=== PATIENT | female | born 2000 | race African-American/Black ===

== ENCOUNTER 2023-01-14 07:49 | Inpatient (IN) | payer OTHER ==
[~2023-01-14] VITALS: Ht 162.6 cm; Wt 103.4 kg
[~2023-01-14 07:49] MED LIST: LIDOCAINE 2%/EPINEPHRINE 1:200,000 20 ML VIAL INJ ONE
[2023-01-14] MEDS ORDERED: OXYTOCIN 30 UNITS/500ML NS PMX 500 ML IV SCH (12:30)
[2023-01-14] MEDS ORDERED: NALOXONE HCL 0.4 MG/ML 1ML VIAL IM PRN (12:30)
[2023-01-14] MEDS ORDERED: LIDOCAINE HCL 1% 20ML VIAL (Pyxis) INJ INFIL SCH (12:30)
[2023-01-14] MEDS ORDERED: MISOPROSTOL 100MCG TABLET VG SCH (12:30)
[2023-01-14] MEDS ORDERED: METHYLERGONOVINE MALEATE 0.2 MG/ML IM PRN (12:30)
[2023-01-14] MEDS ORDERED: CARBOPROST TROMETHAMINE 250 MCG/ML AMPUL IM PRN (12:30)
[2023-01-14] MEDS ORDERED: FENTANYL CITRATE/PF 50MCG/ML 2ML VIAL IV NR (12:40)
[2023-01-14] MEDS: LACTATED RINGERS 1,000 ML IV SCH ×2 (12:53→20:14)
[2023-01-14 13:09] LABS: CLARITY URINE CLOUDY (CLEAR); COLOR URINE YELLOW (YELLOW); KETONES URINE NEGATIVE (NEGATIVE); LEUKOCYTE ESTERASE URINE 1+ (NEGATIVE); NITRITE URINE NEGATIVE (NEGATIVE); OCCULT BLOOD URINE NEGATIVE (NEGATIVE); PH URINE 6.5 (4.5-8.0); PROTEIN URINE NEGATIVE (NEGATIVE); SPECIFIC GRAVITY URINE 1.019 (1.005-1.030)
[2023-01-14 13:27] LABS: BASOPHILS % 0.2 % (0.0-2.0); EOSINOPHILS % 0.4 % (0.0-5.0); HEMATOCRIT. 34.8 % (36.0-48.0); HEMOGLOBIN. 11.8 g/dL (12.0-16.0); LYMPHOCYTES % 16.7 % (20.0-50.0); MEAN CORPUSCULAR HEMOGLOBIN 31.4 pg (28.0-32.0); MEAN PLATELET VOLUME 10.4 fl (7.4-10.4); MONOCYTES % 8.2 % (2.0-8.0); NEUTROPHILS % 74.5 % (40.0-76.0); PLATELET 181 x1000/uL (130-400); RED BLOOD CELL COUNT 3.75 mill/uL (4.2-5.4); RED CELL DISTRIBUTION WIDTH 13.3 % (11.6-14.6)
[2023-01-14 13:44] LABS: *AMPHETAMINES SCREEN URINE NEGATIVE (NEGATIVE); *BARBITURATES SCREEN URINE NEGATIVE (NEGATIVE); *BENZODIAZEPINES SCREEN URINE NEGATIVE (NEGATIVE); *COCAINE SCREEN URINE NEGATIVE (NEGATIVE); CANNABINOID URINE SCREEN NEGATIVE (NEGATIVE); METHADONE URINE SCREEN NEGATIVE (NEGATIVE); OPIATES URINE SCREEN NEGATIVE (NEGATIVE); PHENCYCLIDINE URINE SCREEN NEGATIVE (NEGATIVE)
[2023-01-14 14:15] LABS: HEPATITIS B SURFACE ANTIGEN NEGATIVE
[2023-01-14 16:02] LABS: INR 0.9; PROTHROMBIN TIME 9.9 sec (9.6-11.0)
[2023-01-14] MEDS ORDERED: MEPERIDINE HCL/PF 50MG/ML CPJ IM PRN (20:30)
[2023-01-14] MEDS ORDERED: NALOXONE HCL 0.4MG/ML VIAL IV PRN (20:30)
[2023-01-14] MEDS ORDERED: MEPERIDINE HCL/PF 50MG/ML CPJ IV NR (20:53)
[2023-01-15] MEDS: LACTATED RINGERS 1,000 ML IV SCH ×2 (02:23→03:48)
[2023-01-15] MEDS ORDERED: ROPIVACAINE HCL/PF EPIDURAL 200 ML EPI ONE (02:56)
[2023-01-15] MEDS ORDERED: ROPIVACAINE HCL/PF EPIDURAL 200 ML EPI SCH (03:00)
[2023-01-15] MEDS ORDERED: DEXAMETHASONE 4MG/ML 1ML VIAL ONE (10:16)
[2023-01-15] MEDS ORDERED: METOCLOPRAMIDE HCL 10MG/2ML VIAL ONE (10:16)
[2023-01-15] MEDS ORDERED: ONDANSETRON HCL 4MG/2ML INJ ONE (10:16)
[2023-01-15] MEDS ORDERED: OXYTOCIN 10 UNITS/ML 1ML ONE ×2 (10:16→11:06)
[2023-01-15] MEDS ORDERED: CEFAZOLIN SODIUM 1000MG/VIAL ONE (10:17)
[2023-01-15] MEDS ORDERED: SODIUM BICARBONATE 4% (2.4MEQ) 5ML VIAL IV ONE (10:17)
[2023-01-15] MEDS ORDERED: PROPOFOL 200MG/20ML VIAL IV ONE (10:44)
[2023-01-15] MEDS ORDERED: KETOROLAC 60MG/2ML VIAL IM ONE (10:59)
[2023-01-15] MEDS ORDERED: MORPHINE SULFATE/PF 1MG/ML 10ML AMP ONE (11:04)
[2023-01-15] MEDS ORDERED: BISACODYL 10MG SUPP PR PRN (11:30)
[2023-01-15] MEDS ORDERED: ONDANSETRON HCL 4MG/2ML INJ IV PRN (11:30)
[2023-01-15] MEDS ORDERED: LANOLIN OINT 7GM TUBE TOP PRN (11:30)
[2023-01-15] MEDS ORDERED: IBUPROFEN 400MG TABLET PO PRN (11:30)
[2023-01-15] MEDS ORDERED: OXYTOCIN 30 UNITS/500ML NS PMX 500 ML IV SCH (11:30)
[2023-01-15] MEDS ORDERED: RHO(D) IMMUNE GLOBULIN 300 MCG/SYR IM PRN (11:30)
[2023-01-15] MEDS ORDERED: HEMORRHOIDAL SUPP PR PRN (11:30)
[2023-01-15] MEDS ORDERED: ACETAMINOPHEN WITH CODEINE 300/30MG TABLET PO PRN (11:30)
[2023-01-15 13:00] VITALS: BP 131/70
[2023-01-15 13:15] VITALS: BP 126/71
[2023-01-15 13:30] VITALS: BP 121/74
[2023-01-15] MEDS ORDERED: FENTANYL CITRATE/PF 50MCG/ML 2ML VIAL IV PRN (13:30)
[2023-01-15] MEDS ORDERED: NALOXONE HCL 0.4 MG/ML 1ML VIAL IV PRN (13:30)
[2023-01-15] MEDS: KETOROLAC 30MG/ML VIAL IV SCH ×2 (13:51→19:47)
[2023-01-15] MEDS ORDERED: LACTATED RINGERS 1,000 ML IV SCH (17:00)
[2023-01-15] MEDS ORDERED: DIPHENHYDRAMINE 50MG/ML VIAL IV PRN (18:15)
[2023-01-15 20:00] VITALS: BP 123/64
[2023-01-15] MEDS ORDERED: DOCUSATE SODIUM 100MG CAPSULE PO SCH (21:00)
[2023-01-15] MEDS ORDERED: DIPHENHYDRAMINE 25MG CAPSULE PO PRN (21:00)
[2023-01-16 00:15] VITALS: BP 126/72
[2023-01-16] MEDS: KETOROLAC 30MG/ML VIAL IV SCH (02:23)
[2023-01-16 03:30] VITALS: BP 113/63
[2023-01-16 06:18] LABS: BASOPHILS % 0.1 % (0.0-2.0); EOSINOPHILS % 0.1 % (0.0-5.0); HEMATOCRIT. 28.4 % (36.0-48.0); HEMOGLOBIN. 9.6 g/dL (12.0-16.0); LYMPHOCYTES % 12.6 % (20.0-50.0); MEAN CORPUSCULAR HEMOGLOBIN 31.1 pg (28.0-32.0); MEAN CORPUSCULAR VOLUME 91.7 fL (81.0-99.0); MEAN PLATELET VOLUME 10.1 fl (7.4-10.4); NEUTROPHILS % 78.2 % (40.0-76.0); PLATELET 176 x1000/uL (130-400); RED CELL DISTRIBUTION WIDTH 13.2 % (11.6-14.6)
[2023-01-16 08:00] VITALS: BP 90/45
[2023-01-16] MEDS: SIMETHICONE 80MG TABLET CHEW PO SCH ×3 (08:02→17:43)
[2023-01-16] MEDS: MAGNESIUM/ALUMINUM HYDROXIDE/SIMETHICONE 30ML UDC PO SCH ×3 (08:02→17:43)
[2023-01-16] MEDS: FERROUS SULFATE 325MG TABLET PO SCH ×3 (08:03→17:44)
[2023-01-16] MEDS: PRENATAL VIT/FE FUMARATE/FA TABLET PO SCH (08:17)
[2023-01-16 15:27] VITALS: BP 124/71
[2023-01-16] MEDS: IBUPROFEN 800MG TABLET PO PRN ×2 (17:44→23:59)
[2023-01-16 20:00] VITALS: BP 103/58
[2023-01-17 00:45] VITALS: BP 104/54
[2023-01-17 06:32] LABS: BASOPHILS % 0.3 % (0.0-2.0); EOSINOPHILS % 0.3 % (0.0-5.0); HEMATOCRIT. 28.9 % (36.0-48.0); HEMOGLOBIN. 9.6 g/dL (12.0-16.0); LYMPHOCYTES % 21.1 % (20.0-50.0); MEAN CORPUSCULAR HEMOGLOBIN 30.7 pg (28.0-32.0); MEAN CORPUSCULAR VOLUME 92.6 fL (81.0-99.0); MEAN PLATELET VOLUME 10.2 fl (7.4-10.4); MONOCYTES % 9.3 % (2.0-8.0); PLATELET 176 x1000/uL (130-400); RED BLOOD CELL COUNT 3.13 mill/uL (4.2-5.4); RED CELL DISTRIBUTION WIDTH 13.2 % (11.6-14.6)
[2023-01-17] MEDS ORDERED: AMPICILLIN SOD/SULBACTAM NA 3 G in SODIUM CHLORIDE 0.9% 100 ML IV SCH (07:30)
[2023-01-17 07:45] VITALS: BP 103/47
[2023-01-17] MEDS: SIMETHICONE 80MG TABLET CHEW PO SCH ×3 (08:35→17:41)
[2023-01-17] MEDS: MAGNESIUM/ALUMINUM HYDROXIDE/SIMETHICONE 30ML UDC PO SCH ×3 (08:35→17:41)
[2023-01-17] MEDS: FERROUS SULFATE 325MG TABLET PO SCH ×3 (08:36→17:41)
[2023-01-17] MEDS: PRENATAL VIT/FE FUMARATE/FA TABLET PO SCH (08:36)
[2023-01-17 15:45] VITALS: BP 109/56
[2023-01-17 20:00] VITALS: BP 117/78
[2023-01-18 04:00] VITALS: BP 121/77
[2023-01-18 09:00] VITALS: BP 130/72
[2023-01-18] MEDS: MAGNESIUM/ALUMINUM HYDROXIDE/SIMETHICONE 30ML UDC PO SCH (10:45)
[2023-01-18] MEDS: FERROUS SULFATE 325MG TABLET PO SCH (10:46)
[2023-01-18] MEDS: SIMETHICONE 80MG TABLET CHEW PO SCH (10:46)
[2023-01-18] MEDS: PRENATAL VIT/FE FUMARATE/FA TABLET PO SCH (10:47)
== END 2023-01-18 15:00 | disposition home or self-care (01) | DRG 540 ==
LOC: 8 EST LDRP 07:49 → OBSVTOIN 07:49 → 8EST 01-15 13:00
PROVIDERS: ADMIT Obstetrics & Gynecology; ATTEND Obstetrics & Gynecology
PROC: 10D00Z1 Extraction of Products of Conception, Low, Open Approach (ICD-10-PCS; principal; 2023-01-15)
DX: O36.5930 Maternal care for other known or suspected poor fetal growth, third trimester, not applicable or unspecified (principal); D62 Acute posthemorrhagic anemia; O76 Abnormality in fetal heart rate and rhythm complicating labor and delivery; Z20.822 Contact with and (suspected) exposure to COVID-19; O42.013 Preterm premature rupture of membranes, onset of labor within 24 hours of rupture, third trimester; D72.829 Elevated white blood cell count, unspecified; O99.12 Other diseases of the blood and blood-forming organs and certain disorders involving the immune mechanism complicating childbirth; Z37.0 Single live birth; Z3A.39 39 weeks gestation of pregnancy
CPT/HCPCS: 36415; 76805; 76818; 80305; 81003; 85025; 86592; 86703; 86762; 86850; 86900; 87340; 88307; 99281; J0295; J0690; J1100; J1200; J1885; J2175; J2274; J2405; J2704; J2765; J2795; J3490; J7050; J7120; A4315; J2590